=== PATIENT | male | born 1995 | race Two or more races ===

== ENCOUNTER 2024-09-28 15:18 | Emergency (ER) | payer MEDICAID, OTHER ==
[~2024-09-28] VITALS: Ht 188 cm; Wt 87.9 kg
--- NOTE | 2024-09-28 15:34 | ED.PDOC ---
Musculoskeletal HPI Comments 28 year old male presents to the ED with a chief complaint of LT middle finger injury onset today. Patient states he was had LT middle finger crushed by two pieces of metal. He states he is currently not experiencing any pain, is concerned for possible fracture. Denies any PMHx as well as LOC, head injury, nausea, vomiting, diarrhea, headache, dizziness. No other symptoms or modifying factors present at this time. Patient states there was some blood loss at time of event, but wound was covered at time of evaluation. Patient's tetanus is up-to-date. Chief Complaint: Upper Extremity Time Seen by MD: 15:25 Reviewed Notes: Nurses Notes, Medications, Allergies Allergies: Coded Allergies: NO KNOWN ALLERGIES (Unverified , 09/28/24) Information Source: Patient Mode of Arrival: Ambulatory Location: Left Extremity Location: Finger 3 Timing: Hours Prehospital treatment: None Severity: Moderate Able to Move Extremity: Yes Pain: Moderate Mechanism: Crush Onset of Symptoms: After Trauma Symptoms: Swelling DVT Risk Factors: NONE Last Tetanus: UTD Associated signs and symptoms: Other (finger pain) Past Medical History PAST MEDICAL HISTORY: Denies Surgical History: Denies all surgeries Family History Family History: Reviewed,noncontributory to illness, No family hx of Cancer, No family hx of DM, No family hx of Heart margy, No family hx of HTN, No family hx ofKidney margy, No family hx of Liver margy, No family hx of Lung margy, No family hx of Stroke Social History Smoker: Non-Smoker Alcohol: Denies ETOH Use Drugs: Denies Drug Use Lives In: Home Constitutional: denies: chills, diaphoresis, fatigue, fever, malaise, sweats, weakness, others EENTM: denies: blurred vision, double vision, ear bleeding, ear discharge, ear drainage, ear pain, ear ringing, eye pain, eye redness, hearing loss, mouth pain, mouth swelling, nasal discharge, nose bleeding, nose congestion, nose pain, photophobia, tearing, throat pain, throat swelling, voice changes, others Respiratory: denies: cough, hemoptysis, orthopnea, SOB at rest, shortness of breath, SOB with excertion, stridor, wheezing, others Cardiovascular: denies: chest pain, dizzy spells, diaphoresis, Dyspnea on exertion, edema, irregular heart beat, left arm pain, lightheadedness, palpitations, PND, syncope, others Gastrointestinal: denies: abdomen distended, abdominal pain, blood streaked bowels, constipated, diarrhea, dysphagia, difficulty swallowing, hematemesis, melena, nausea, poor appetite, poor fluid intake, rectal bleeding, rectal pain, vomiting, others Genitourinary: denies: burning, dysuria, flank pain, frequency, hematuria, incontinence, penile discharge, penile sore, pain, testicle pain, testicle swelling, urgency, others Neurological: denies: dizziness, fainting, headache, left sided numbness, left sided weakness, numbness, paresthesia, pre-existing deficit, right sided numbness, right sided weakness, seizure, speech problems, tingling, tremors, weakness, others Musculoskeletal: reports: others (LT middle finger swelling); denies: back pain, gout, joint pain, joint swelling, muscle pain, muscle stiffness, neck pain Integumetry: denies: bruises, change in color, change in hair/nails, dryness, laceration, lesions, lumps, rash, wounds, others Allergic/Immunocompromised: denies: Difficulty Healing, Frequent Infections, Hives, Itching, others Hematologic/Lymphatic: denies: anemia, blood clots, easy bleeding, easy bruising, swollen glands, others Endocrine: denies: excessive hunger, excessive sweating, excessive thirst, excessive urination, flushing, intolerance to cold, intolerance to heat, unexplained weight gain, unexplained weight loss, others Psychiatric: denies: anxiety, bipolar disorder, depression, hopeless, panic disorder, schizophrenia, sleepless, suicidal, others All Other Systems: Reviewed and Negative Physical Exam General Appearance: Mild Distress (Mild discomfort due to distal left middle finger concerns), Normal HEENT: Normal ENT Inspection, Pharynx Normal, TMs Normal Neck: Full Range of Motion, Non-Tender, Normal, Normal Inspection Respiratory: Chest Non-Tender, Lungs Clear, No Accessory Muscle Use, No Respiratory Distress, Normal Breath Sounds Cardiovascular: No Edema, No JVD, No Murmur, No Gallop, Normal Peripheral Pulses, Regular Rate/Rhythm Breast Exam: Deferred Gastrointestinal: No Organomegaly, Non Tender, No Pulsatile Mass, Normal Bowel Sounds, Soft Genitalia: Deferred Pelvic: Deferred Rectal: Deferred Extremities: Other (Distal left finger reveals some superficial dermal tears with no deep penetration. Wound will be cleaned and dressed with topical antibiotics.) Musculoskeletal : Apperance: Normal Neurologic: Alert, No Motor Deficits, Normal Affect, Normal Mood, No Sensory Deficits Cerebellar Function: Normal Reflexes: Normal Skin: Dry, Normal Color, Warm Lymphatic: No Adenopathy Was a procedure done? Was a procedure done?: No Differential Diagnosis EXT Differential Diagnosis: Fracture, Sprain, Contusion, Strain, Other (Crush injury) X-Ray, Labs, Meds, VS Vital Signs Date Time Temp Pulse Resp B/P (MAP) Pulse Ox O2 Delivery O2 Flow Rate FiO2 09/28/24 15:28 98.9 63 16 124/69 (87) 98 98.9 [place] [address] Ph: [phone] DIAGNOSTIC IMAGING Diagnostic Imaging Report : [id number] Signed PATIENT: CESAR PAREKH ACCT: [id number] UNIT: [id number] : 1995 LOC: ER ROOM / BED: / AGE / SEX: 28 / M ADM STATUS: REG ER SERVICE [id number] ORDERING PHYSICIAN: ANGELIQUE CRUZ PAC PROCEDURE(s): LHAN - L HAND 3V XRAY REASON: Crush injury to distal 3rd finger ORDER NUMBER(s): [id number], ACCESSION NUMBER(s): [id number] EXAM: XR Left Hand Complete, 3 or More Views CLINICAL INDICATION: Crush injury to distal 3rd finger TECHNIQUE: Frontal, lateral and oblique views of the left hand. COMPARISON: None FINDINGS: BONES/JOINTS: See below. SOFT TISSUES: Soft tissue swelling without acute fracture. No radiopaque foreign body. OTHER FINDINGS: . IMPRESSION: 1. Soft tissue swelling without acute fracture. 2. If symptoms persist, further evaluation with CT is recommended. ATED BY: ANGELIQUE GALLOWAY MD DICTATED DATE/TIME: 09/28/241551 SIGNED BY: ANGELIQUE GALLOWAY MD SIGNED DATE/TIME: 09/28/241551 CC: X-Ray, Labs, Meds, VS Comment All studies performed the ED were evaluated by me personally. Imaging studies were unremarkable for any acute fractures. Patient sustained a crush injury to that distal left middle finger. Wound was cleaned, topical antibiotics applied and dressed. Advised patient utilize antibiotics as directed for the next few days and pain medication as needed. Time of 1ST Reevaluation: 16:14 Reevaluation 1ST: Improved Consultation: PCP Patient Education/Counseling: Diagnosis, Treatment, Prognosis, Need For Follow Up Family Education/Counseling: Diagnosis, Treatment, Prognosis Additional Information The following tests were ordered, and results were reviewed by me: L HAND 3V XRAY Additional Information was gathered from interviewing the following independent historians: I reviewed and agreed with the following test results read by other providers: L HAND 3V XRAY I discussed treatment and results with medical personnel and: Patient, Comprehensive systems review obtained and negative except for what is stated in the HPI. Departure 1 Departure Time of Disposition: 16:14 Impression: Primary Impression: Crush injury to finger Disposition: 01 HOME / SELF CARE / HOMELESS Condition: Stable Additional Instructions: Advise utilizing oral antibiotics as directed until completion as well as pain medication as needed. Patient should do daily dressing changes. e-Prescriptions Ibuprofen Micronized (Ibuprofen) 800 Mg Tab 800 MG PO Q8HP PRN, #20 TAB Prov: ANGELIQUE CRUZ PAC 09/28/24 Bacitracin Base (Bacitracin) 500 Unit/Gm Oin 500 UNIT TOP DAILY, #30 GM Prov: ANGELIQUE CRUZ PAC 09/28/24 Cephalexin (KEFLEX CAPSULE) 250 Mg Cp 1 CAP PO QID for 5 Days, #20 CAP Prov: ANGELIQUE CRUZ PAC 09/28/24 Discharged With: Self, Spouse Critical Care Note Critical Care Time?: No Stability Stability form required: No Heart Score Heart Score: Heart Score Response (Comments) Value History N/A 0 EKG N/A 0 Age N/A 0 Risk Factors N/A 0 Troponin N/A 0 Total 0 I personally scribed for ANGELIQUE CRUZ B PAC ([email or web address]) on 09/28/24 at 15:34. Vivian ctronically submitted by Kassidy Santoyo ([email or web address]). I personally scribed for ANGELIQUE CRUZ B PAC ([email or web address]) on 09/28/24 at 15:44. Electronically submitted by Kassidy Santoyo ([email or web address]). I personally scribed for ANTHONYANGELIQUE NICK B PAC ([email or web address]) on 09/28/24 at 15:57. Electronically submitted by Kassidy Santoyo ([email or web address]). I personally scribed for ANGELIQUE CRUZ PAC ([email or web address]) on 09/28/24 at 15:57. Electronically submitted by Kassidy Santoyo ([email or web address]). ANGELIQUE CRUZ PAC Sep 28, 2024 15:34
--- NOTE | 2024-09-28 15:55 | DVH ---
EXAM: XR Left Hand Complete, 3 or More Views CLINICAL INDICATION: Crush injury to distal 3rd finger TECHNIQUE: Frontal, lateral and oblique views of the left hand. COMPARISON: None FINDINGS: BONES/JOINTS: See below. SOFT TISSUES: Soft tissue swelling without acute fracture. No radiopaque foreign body. OTHER FINDINGS: . IMPRESSION: 1. Soft tissue swelling without acute fracture. 2. If symptoms persist, further evaluation with CT is recommended.
[2024-09-28] MEDS ORDERED: IBUP-1455 PO (16:15)
[2024-09-28] MEDS: NEOMYCIN-BACITRACIN-POLYM UNITDOSE PKG TOP OINT TOP ONE (16:15)
[2024-09-28] MEDS ORDERED: CEPH250C PO (16:15)
[2024-09-28] MEDS ORDERED: BACIOIN15 TOP (16:15)
[2024-09-28 16:50] VITALS: BP 98/53; PULSE 60; RESP 18; TEMP 98.9; O2SAT 95
== END 2024-09-28 16:58 | disposition home or self-care (01) ==
LOC: ER 15:18
DX: S67.192A Crushing injury of right middle finger, initial encounter (principal); W23.0XXA Caught, crushed, jammed, or pinched between moving objects, initial encounter; Y93.89 Activity, other specified; Y92.89 Other specified places as the place of occurrence of the external cause; Y99.8 Other external cause status
CPT/HCPCS: 73130